=== PATIENT | female | born 1990 | race Caucasian/White ===

== ENCOUNTER 2019-04-21 15:44 | Inpatient (IN) ==
[2019-04-21] MEDS ORDERED: KETOROLAC 30 MG/1 ML VIAL IV STA (16:10)
[2019-04-21] MEDS ORDERED: CLINDAMYCIN INJ 900 MG in PREMIX 1 EACH IV STA (16:10)
[2019-04-21 16:50] LABS: Basophils # 0.1 10*3/uL (0.0-0.2); Basophils % 0.8 % (0.0-0.8); Eosinophils # 0.1 10*3/uL (0.0-0.87); Eosinophils % 1.7 % (0.00-10.9); Hematocrit 42.8 VOL% (35.7-47.0); Hemoglobin 14.2 GM/DL (12.0-16.0); Immature Granulocytes % 0.4 %; Immature Granulocytes Absolute 0.03 #; Lymphocytes # 1.9 10*3/uL (1.4-4.0); Lymphocytes % 24.1 % (21.3-54.2); Mean Corpuscular HGB Conc 33.2 GM/DL (32-36); Mean Corpuscular Volume 92.2 FL (87-102); Mean Platelet Volume 11.2 FL (9.6-12.0); Monocytes % 6.3 % (1.7-12.7); Neutrophils % 66.7 % (38.7-73.9); Platelet Count 175 T/CUMM (130-400); Red Blood Count 4.64 MC/CUMM (3.8-5.5); Red Cell Distribution Width 12.6 % (9.3-17.3); White Blood Count 7.8 T/CUMM (4-12)
[2019-04-21 17:31] LABS: Albumin 3.5 G/DL (3.4-5.0); Bilirubin,Total 0.4 MG/DL (0.2-1.0); Calcium 9.1 MG/DL (8.5-10.1); Osmolality,Calculated 267.1 MOS/KG (273-304); Total Protein 7.5 G/DL (6.4-8.3)
[2019-04-21] MEDS ORDERED: VANCOMYCIN INJ 1,000 MG in SODIUM CHLORIDE 0.9% 250 ML IV STA (18:45)
[2019-04-21] MEDS ORDERED: ONDANSETRON 4 MG/2 ML VIAL IV PRN (18:48)
[2019-04-21] MEDS ORDERED: ACETAMINOPHEN 325 MG TABLET PO PRN (18:48)
[2019-04-21 22:00] LABS: Band Neutrophils 3 % (0-10); Eosinophils 1 % (0-10); Lymphocytes 25 % (20-55); Platelet Estimate Normal; Segmented Neutrophils 64 % (50-85); Total Cells Counted 100
[2019-04-22] MEDS: VANCOMYCIN INJ 1,250 MG in SODIUM CHLORIDE 0.9% 250 ML IV SCH ×2 (08:11→21:45)
[2019-04-22] MEDS: PANTOPRAZOLE 40 MG TABLET PO SCH (08:13)
[2019-04-22] MEDS: KETOROLAC 10 MG TABLET PO PRN (17:46)
[2019-04-22] MEDS: oxyCODONE/ACETAMINOPHEN 5-325 MG TABLET PO PRN ×2 (17:46→21:56)
[2019-04-22] MEDS ORDERED: NON-FORMULARY MEDICATION (Dextroamphetamine-Amphetamine 30 MG) PO SCH (21:00)
[2019-04-22] MEDS: MUPIROCIN 2% OINT 22 GM TUBE TOP SCH (21:56)
[2019-04-23] MEDS: KETOROLAC 10 MG TABLET PO PRN ×2 (01:34→20:37)
[2019-04-23] MEDS: oxyCODONE/ACETAMINOPHEN 5-325 MG TABLET PO PRN ×4 (01:35→21:04)
[2019-04-23 08:32] LABS: Calcium 8.8 MG/DL (8.5-10.1); Osmolality,Calculated 272.7 MOS/KG (273-304)
[2019-04-23] MEDS ORDERED: HYDROmorphone 2 MG/1 ML VIAL IV ONE ×2 (09:05→09:37)
[2019-04-23] MEDS: PANTOPRAZOLE 40 MG TABLET PO SCH (09:42)
[2019-04-23] MEDS: VANCOMYCIN INJ 1,250 MG in SODIUM CHLORIDE 0.9% 250 ML IV SCH ×2 (09:46→20:38)
[2019-04-23] MEDS ORDERED: oxyCODONE/ACETAMINOPHEN 5-325 MG TABLET PO ONE (09:48)
[2019-04-23] MEDS: CHLORHEXIDINE 4% SOLN 118 ML BOTTLE TOP SCH (10:32)
[2019-04-23] MEDS: MUPIROCIN 2% OINT 22 GM TUBE TOP SCH ×2 (10:32→20:39)
[2019-04-24] MEDS: MUPIROCIN 2% OINT 22 GM TUBE TOP SCH ×2 (09:00→20:33)
[2019-04-24] MEDS: PANTOPRAZOLE 40 MG TABLET PO SCH (09:02)
[2019-04-24] MEDS: CHLORHEXIDINE 4% SOLN 118 ML BOTTLE TOP SCH (09:05)
[2019-04-24] MEDS: KETOROLAC 10 MG TABLET PO PRN (09:05)
[2019-04-24] MEDS: oxyCODONE/ACETAMINOPHEN 5-325 MG TABLET PO PRN ×3 (10:18→20:59)
[2019-04-24] MEDS: AMPICILLIN/SULBACTAM 3,000 MG in SODIUM CHLORIDE 0.9% 100 ML IV SCH ×3 (11:16→21:44)
[2019-04-25] MEDS: oxyCODONE/ACETAMINOPHEN 5-325 MG TABLET PO PRN ×4 (01:30→21:07)
[2019-04-25] MEDS: AMPICILLIN/SULBACTAM 3,000 MG in SODIUM CHLORIDE 0.9% 100 ML IV SCH ×4 (04:46→21:08)
[2019-04-25] MEDS: PANTOPRAZOLE 40 MG TABLET PO SCH (08:51)
[2019-04-25] MEDS: CHLORHEXIDINE 4% SOLN 118 ML BOTTLE TOP SCH (09:00)
[2019-04-25] MEDS: MUPIROCIN 2% OINT 22 GM TUBE TOP SCH ×2 (09:00→22:27)
[2019-04-26] MEDS: AMPICILLIN/SULBACTAM 3,000 MG in SODIUM CHLORIDE 0.9% 100 ML IV SCH ×2 (04:55→10:00)
[2019-04-26 08:14] VITALS: BP 115/62
[2019-04-26] MEDS: CHLORHEXIDINE 4% SOLN 118 ML BOTTLE TOP SCH (10:13)
[2019-04-26] MEDS: PANTOPRAZOLE 40 MG TABLET PO SCH (10:13)
[2019-04-26] MEDS: MUPIROCIN 2% OINT 22 GM TUBE TOP SCH (10:13)
[2019-04-26] MEDS: KETOROLAC 10 MG TABLET PO PRN (10:14)
== END 2019-04-26 10:47 | disposition home or self-care (01) | DRG 603 ==
LOC: N.EDINP 15:44 → N.ED 15:44 → N.3E 19:38
PROVIDERS: ADMIT Surgery; ATTEND Surgery

== ENCOUNTER 2021-05-28 18:46 | Inpatient (IN) ==
[2021-05-28] MEDS ORDERED: BUTORPHANOL 2 MG/ML VIAL IV PRN (19:40)
[2021-05-28] MEDS ORDERED: MEPERIDINE 50 MG/1 ML VIAL IM PRN (19:40)
[2021-05-28] MEDS ORDERED: LACTATED RINGERS 500 ML IV PRN (19:40)
[2021-05-28] MEDS ORDERED: ONDANSETRON 4 MG/2 ML VIAL IV PRN (19:40)
[2021-05-28] MEDS ORDERED: hydrOXYzine HCL 25 MG/1 ML VIAL IM PRN (19:42)
[2021-05-28] MEDS ORDERED: diphenhydrAMINE 50 MG/1 ML VIAL IV PRN ×2 (19:42)
[2021-05-28] MEDS ORDERED: ONDANSETRON 4 MG/2 ML VIAL IV ONE (19:42)
[2021-05-28] MEDS ORDERED: PROMETHAZINE 25 MG/1 ML VIAL IM ONE (19:42)
[2021-05-28] MEDS ORDERED: FAMOTIDINE 20 MG/2 ML VIAL IV ONE (19:42)
[2021-05-28] MEDS ORDERED: NALOXONE 0.4 MG/ML VIAL IV PRN (19:42)
[2021-05-28] MEDS ORDERED: CITRIC ACID/SODIUM CITRATE 30 ML UDCUP PO ONE (19:42)
[2021-05-28] MEDS ORDERED: ePHEDrine 50 MG/ML VIAL IV PRN (19:42)
[2021-05-28] MEDS ORDERED: LACTATED RINGERS 1,000 ML IV SCH (20:00)
[2021-05-28] MEDS ORDERED: fentaNYL 2 MCG/ROPIV 0.2% EPID 100 ML EPIDURAL SCH (20:00)
[2021-05-28 20:15] LABS: Alanine Aminotransferase 15 U/L (13-56); Albumin 2.4 G/DL (3.4-5.0); Alkaline Phosphatase 163 U/L (45-117); Aspartate Amino Transferase 28 U/L (0-37); Bilirubin,Total < 0.39 MG/DL (0.20-1.00); Blood Urea Nitrogen 6 MG/DL (7-18); Calcium 8.8 MG/DL (8.5-10.1); Carbon Dioxide 22 MMOL/L (21-32); Estimated Glom Filtration Rate 151 ML/MIN; Glucose 70 MG/DL (74-106); Potassium 3.8 MMOL/L (3.5-5.1); Sodium 136 MMOL/L (136-145); Total Protein 6.9 G/DL (6.4-8.2)
[2021-05-28 20:18] LABS: Basophils % 0.2 % (0.0-0.8); Eosinophils # 0.2 10*3/uL (0.0-0.87); Eosinophils % 1.3 % (0.00-10.9); Hematocrit 33.6 VOL% (35.7-47.0); Hemoglobin 10.8 GM/DL (12.0-16.0); Immature Granulocytes % 0.6 %; Immature Granulocytes Absolute 0.07 #; Lymphocytes # 2.4 10*3/uL (1.4-4.0); Lymphocytes % 19.6 % (21.3-54.2); Mean Corpuscular HGB Conc 32.1 GM/DL (32-36); Mean Platelet Volume 11.5 FL (9.6-12.0); Monocytes % 7.2 % (1.7-12.7); Neutrophils % 71.1 % (38.7-73.9); Platelet Count 311 T/CUMM (130-400); Red Blood Count 4.05 MC/CUMM (3.8-5.5); Red Cell Distribution Width 13.5 % (9.3-17.3); White Blood Count 12.4 T/CUMM (4-12)
[2021-05-28] MEDS ORDERED: miSOPROStoL 200 MCG TABLET ONE (22:00)
[2021-05-28] MEDS ORDERED: OXYTOCIN/LR 20 UNIT/1,000 ML BAG IV ONE (22:01)
[2021-05-28] MEDS ORDERED: SODIUM CHLORIDE 0.9% 0 ML IV ONE (22:01)
[2021-05-28] MEDS ORDERED: TRANEXAMIC ACID 1,000 MG/10 ML VIAL ONE (22:01)
[2021-05-28] MEDS ORDERED: METHYLERGONOVINE 0.2 MG/1 ML AMP ONE (22:01)
[2021-05-28] MEDS ORDERED: CARBOPROST TROMETHAMINE 250 MCG/ML AMP IM ONE (22:01)
[2021-05-28] MEDS ORDERED: TERBUTALINE 1 MG/1 ML VIAL ONE (23:57)
[2021-05-29] MEDS ORDERED: LIDOCAINE MPF 2% /EPI 20 ML VIAL ONE (00:22)
[2021-05-29] MEDS ORDERED: ONDANSETRON 4 MG/2 ML VIAL ONE (00:22)
[2021-05-29] MEDS ORDERED: LIDOCAINE 2% 5 ML VIAL ONE (00:25)
[2021-05-29 00:27] LABS: Cord Arterial Blood HCO3 14.9 MMOL/L
[2021-05-29 00:29] LABS: Cord Venous Blood PCO2 55.1 MMHG; Cord Venous Blood PO2 19.9
[2021-05-29] MEDS ORDERED: KETOROLAC 30 MG/1 ML VIAL ONE (00:31)
[2021-05-29] MEDS ORDERED: DEXAMETHASONE 4 MG/1 ML VIAL ONE ×2 (00:31→00:40)
[2021-05-29] MEDS ORDERED: ACETAMINOPHEN INJ 1,000 MG/100 ML VIAL IV ONE (00:31)
[2021-05-29] MEDS ORDERED: PHENYLEPHRINE 1 MG/10 ML SYRINGE IV ONE (00:35)
[2021-05-29] MEDS ORDERED: OXYTOCIN/LR 20 UNIT/1,000 ML BAG IV ONE ×2 (03:55→05:14)
[2021-05-29] MEDS ORDERED: WITCH HAZEL PADS 100/JAR TOP PRN (05:14)
[2021-05-29] MEDS ORDERED: oxyCODONE/ACETAMINOPHEN 5-325 MG TABLET PO PRN (05:14)
[2021-05-29] MEDS ORDERED: ACETAMINOPHEN 325 MG TABLET PO PRN (05:14)
[2021-05-29] MEDS ORDERED: BENZOCAINE 20%/MENTHOL 0.5% SPRAY 56 GM CAN TOP PRN (05:14)
[2021-05-29] MEDS ORDERED: LANOLIN 50% CREAM 0.3 OZ TUBE TOP PRN (05:14)
[2021-05-29] MEDS ORDERED: RHO(D) IMMUNE GLOBULIN 300 MCG SYRINGE IM ONE (05:14)
[2021-05-29] MEDS ORDERED: HYDROCORTISONE 2.5% RECTAL CREAM 30 GM TUBE TOP PRN (05:14)
[2021-05-29] MEDS ORDERED: MEASLES/MUMPS/RUBELLA VACCINE 0.5 ML VIAL SUBCUT ONE (05:14)
[2021-05-29] MEDS ORDERED: ONDANSETRON 4 MG/2 ML VIAL IV PRN (05:14)
[2021-05-29] MEDS ORDERED: DIPH/TET/ACEL PERT BOOSTER VACCINE 0.5 ML VIAL IM ONE (05:14)
[2021-05-29] MEDS ORDERED: BISACODYL 10 MG SUPP RECTAL PRN (05:14)
[2021-05-29] MEDS: KETOROLAC 30 MG/1 ML VIAL IV SCH ×3 (06:35→17:40)
[2021-05-29] MEDS: ACETAMINOPHEN 500 MG TABLET PO SCH ×3 (06:36→18:09)
[2021-05-29] MEDS: DOCUSATE SODIUM 100 MG CAPSULE PO SCH ×2 (08:46→20:19)
[2021-05-29] MEDS: oxyCODONE/ACETAMINOPHEN 5-325 MG TABLET PO PRN ×3 (10:38→21:56)
[2021-05-29] MEDS: ALUMINUM/MAGNES/SIMETH MAX STR 30 ML UDCUP PO PRN ×2 (11:07→17:36)
[2021-05-29 12:17] LABS: Basophils % 0.2 % (0.0-0.8); Hematocrit 28.1 VOL% (35.7-47.0); Hemoglobin 8.9 GM/DL (12.0-16.0); Immature Granulocytes % 0.7 %; Immature Granulocytes Absolute 0.16 #; Lymphocytes # 1.6 10*3/uL (1.4-4.0); Lymphocytes % 7.2 % (21.3-54.2); Mean Corpuscular HGB Conc 31.7 GM/DL (32-36); Mean Corpuscular Volume 83.1 FL (87-102); Mean Platelet Volume 11.2 FL (9.6-12.0); Neutrophils % 85.9 % (38.7-73.9); Platelet Count 279 T/CUMM (130-400); Red Blood Count 3.38 MC/CUMM (3.8-5.5); Red Cell Distribution Width 13.6 % (9.3-17.3)
[2021-05-29 15:26] LABS: Hypochromia 1+; Lymphocytes 13 % (20-55); Platelet Estimate Normal; Polychromasia Slight; Segmented Neutrophils 83 % (50-85); Stomatocytes Few; Target Cells Few; Total Cells Counted 100
[2021-05-29] MEDS: SIMETHICONE CHEW 80 MG TABLET PO PRN (20:18)
[2021-05-29] MEDS: IBUPROFEN 800 MG TABLET PO PRN (21:57)
[2021-05-30] MEDS ORDERED: MEPERIDINE 50 MG/1 ML VIAL IM ONE (02:15)
[2021-05-30] MEDS ORDERED: PROMETHAZINE 25 MG/1 ML VIAL IM ONE (02:15)
[2021-05-30] MEDS: IBUPROFEN 800 MG TABLET PO PRN ×3 (06:11→18:48)
[2021-05-30] MEDS: SIMETHICONE CHEW 80 MG TABLET PO PRN ×2 (09:05→20:51)
[2021-05-30] MEDS: DOCUSATE SODIUM 100 MG CAPSULE PO SCH ×2 (09:05→20:52)
[2021-05-30] MEDS: oxyCODONE/ACETAMINOPHEN 5-325 MG TABLET PO PRN ×3 (09:07→22:50)
[2021-05-30] MEDS: MAGNESIUM HYDROXIDE SUSP 30 ML UDCUP PO PRN (20:51)
[2021-05-31] MEDS: oxyCODONE/ACETAMINOPHEN 5-325 MG TABLET PO PRN ×3 (04:04→17:50)
[2021-05-31] MEDS: IBUPROFEN 800 MG TABLET PO PRN ×2 (05:01→14:54)
[2021-05-31 07:20] VITALS: BP 117/63
[2021-05-31] MEDS ORDERED: FUROSEMIDE 40 MG TABLET PO ONE (08:28)
[2021-05-31] MEDS ORDERED: FUROSEMIDE 20 MG TABLET ONE ×2 (09:08)
[2021-05-31] MEDS: DOCUSATE SODIUM 100 MG CAPSULE PO SCH (09:16)
[2021-05-31] MEDS: MAGNESIUM HYDROXIDE SUSP 30 ML UDCUP PO PRN (09:16)
[2021-05-31] MEDS: SIMETHICONE CHEW 80 MG TABLET PO PRN (09:23)
== END 2021-05-31 18:30 | disposition home or self-care (01) | DRG 788 ==
LOC: N.LDOUT 18:46 → N.LD 18:49 → N.OB 05-29 05:11
PROVIDERS: ADMIT Specialist; ATTEND Specialist
PROC: LDCSECT (ICD-10-PCS; 2021-05-29)